=== PATIENT | male | born 2000 | race Caucasian/White ===

== ENCOUNTER → 2022-06-16 10:59 | Outpatient (CLI) | payer BC, SELFPAY ==
[2022-06-16 12:30] LABS: Add Manual Diff / Slide Review NO; Basophils Absolute Auto 0 /uL (0-100); Basophils Percent Auto 0.6 % (0-2); Eosinophils Absolute Auto 300 /uL (0-450); Eosinophils Percent Auto 5.3 % (2-4); Hematocrit 44.3 % (41-53); Hemoglobin 15.6 g/dL (13.5-17.5); Lymphocytes Absolute Auto 2000 /uL (1100-4500); Lymphocytes Percent Auto 36.3 % (25-40); Mean Corpuscular HGB Conc 35.3 % (30-36); Mean Corpuscular Hemoglobin 29.2 PG (26-34); Mean Corpuscular Volume 82.9 fL (80-100); Monocytes Absolute Auto 400 /uL (0-900); Monocytes Percent Auto 6.6 % (3-14); Neutrophils Absolute Auto 2900 /uL (1500-7000); Neutrophils Percent Auto 51.2 % (50-75); Platelet Count 207 X10^3/uL (150-400); Red Blood Cell Count 5.35 X10^6/uL (4.5-5.9); Red Cell Distribution Width 12.8 % (11.6-14.8); White Blood Cell Count 5.6 X10^3/uL (4.5-11.0)
[2022-06-16 12:48] LABS: Erythrocyte Sedimentation Rate 1 MM/HR (0-15)
[2022-06-16 13:59] LABS: Free T3, Triiodothyronine Free 3.57 pg/mL (2.77-5.27); Free T4, Direct Thyroxine 1.05 ng/dL (0.78-2.19)
[2022-06-16 14:05] LABS: Alanine Aminotransferase 35 IU/L (<50); Albumin 4.6 g/dL (3.5-5.0); Albumin Globulin Ratio 1.6 (1.0-2.8); Alkaline Phosphatase 50 U/L (38-126); Aspartate Aminotransferase 28 IU/L (17-59); BUN Creatinine Ratio 12.6 (6-22); Bilirubin Total 0.6 mg/dL (0.2-1.3); Blood Urea Nitrogen 14 mg/dL (9-20); C-Reactive Protein Quant < 0.5 mg/dL (<1.0); Calcium 9.6 mg/dL (8.4-10.2); Carbon Dioxide 27 mmol/L (22-32); Chloride 101 mmol/L (98-107); Cholesterol 183 mg/dL (140-199); Estimated Glomerular Filt Rate > 60 mL/min (>60); Globulin 2.8 g/dL (1.7-4.1); Glucose 85 mg/dL (70-100); HDL Cholesterol 49 mg/dL (40-60); LDL Cholesterol Calculated 113 mg/dL (<100); Potassium 4.5 mmol/L (3.4-5.1); Sodium 139 mmol/L (137-145); Total Protein 7.4 g/dL (6.3-8.2); Triglycerides 104 mg/dL (35-150)
[2022-06-16 14:12] LABS: Thyroid Stimulating Hormone 2.55 uIU/mL (0.47-4.68)
[2022-06-16 14:31] LABS: HEMOLYSIS 25 (0-50)
[2022-06-16 16:46] LABS: Vitamin D 25 Hydroxy (D3) 45.1 ng/mL (30.0-100.0)
== END ==
PROVIDERS: PCP Naturopath; Referring Provider Naturopath; Visit Provider Naturopath
DX: Z00.01 Encounter for general adult medical examination with abnormal findings (principal)
CPT/HCPCS: 36415; 80053; 80061; 82306; 84439; 84443; 84481; 85025; 85651; 86140

== ENCOUNTER 2024-02-18 21:43 | Emergency (ER) | payer OTHER, SELFPAY ==
[2024-02-18 21:53] VITALS: BP 132/79; PULSE 63; RESP 12; TEMP 37.2; O2SAT 97; BMI 31.5
--- NOTE | 2024-02-18 22:10 | ED.RECABL ---
HPI - Recheck/Abnormal Lab/Rx General Chief Complaint: Blood/Body fluid exposure Stated Complaint: exposure to bacterial menigitis at work Time Seen by Provider: 02/18/24 21:58 Source: patient and EMS Mode of arrival: Ambulatory History of Present Illness HPI narrative: 23-year-old male with no reported medical issues presents after exposure to patient with bacterial meningitis. Patient was being transported by them to the hospital. Transport was earlier today. Patient presents for prophylaxis treatment. Denies any daily medications, no known drug allergies. Related Data Allergies Allergy/AdvReac Type Severity Reaction Status Date / Time No Known Drug Allergies Allergy Verified 02/18/24 22:17 Review of Systems Review of Systems ROS Unobtainable: All systems reviewed & are unremarkable except as noted in HPI and below Patient History Social History Smoking Status: Never smoker Smoking Status: Never smoker alcohol intake frequency: holidays/special occasions only Substance Use Type: does not use Exam Narrative Exam Narrative: GENERAL: Alert and oriented x three, male in acute distress HEENT: Head normocephalic, atraumatic, EOMI, pupils reactive, face symmetric, moist mucous membranes NECK: Supple, full range of motion CARDIOVASCULAR: Regular rate and rhythm without murmurs, rubs or gallops. RESPIRATORY: Breath sounds equal bilaterally, no wheezes rales or rhonchi. EXTREMITIES: Normal gait NEUROLOGICAL: Cranial nerves II through XII grossly intact. Moving all extremities SKIN: Warm, dry, no petechiae, no rashes or lesions. Initial Vital Signs Initial Vital Signs: Vital Signs Temperature 98.9 F 02/18/24 21:53 Pulse Rate 63 02/18/24 21:53 Respiratory Rate 12 02/18/24 21:53 Blood Pressure 132/79 02/18/24 21:53 Pulse Oximetry 97 02/18/24 21:53 Oxygen Delivery Method Room Air 02/18/24 21:53 Course Orders Ordered: Discontinued Medications Ciprofloxacin (Ciprofloxacin 250 Mg Tablet) 500 mg PO NOW ONE Stop: 02/18/24 22:00 Last Admin: 02/18/24 22:19 Dose: 500 mg Documented By: [facility] Vital Signs Vital signs: Vital Signs - 8 hr 02/18/24 21:53 Temperature 98.9 F Pulse Rate 63 Respiratory Rate 12 Blood Pressure 132/79 Pulse Oximetry 97 Oxygen Delivery Method Room Air MDM - Recheck/Abnormal Lab/Rx MDM Narrative Medical decision making narrative: Patient received ciprofloxacin 500 mg for prophylaxis after exposure to patient with a bacterial meningitis. Discharge Plan Departure Patient Disposition: Home Clinical Impression: Exposure to meningitis Activity Restrictions/Additional Instructions: You received a dose of ciprofloxacin 500 mg Please return if you are having any symptoms, fevers severe headaches, neck pain, persistent vomiting or other new or concerning changes. Referrals: Isabel Moss ND [Primary Care Provider] - Stand Alone Forms: Patient Portal/API
[2024-02-18] MEDS: CIPROFLOXACIN 250 MG TABLET 500 MG PO (22:19)
== END 2024-02-18 22:57 | disposition home or self-care (01) ==
PROVIDERS: Emergency Provider Emergency Medicine; PCP Naturopath
DX: Z20.818 Contact with and (suspected) exposure to other bacterial communicable diseases (principal); Y99.0 Civilian activity done for income or pay
CPT/HCPCS: 99282; 99283